=== PATIENT | male | born 1970 | race Caucasian/White ===

== ENCOUNTER 2018-11-23 10:26 | Emergency (ER) | payer SELFPAY ==
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
== END 2018-11-23 11:14 | disposition home or self-care (01) ==
LOC: ERS 10:26
DX: S22.41XA Multiple fractures of ribs, right side, initial encounter for closed fracture (principal); J44.9 Chronic obstructive pulmonary disease, unspecified; F17.210 Nicotine dependence, cigarettes, uncomplicated; W50.1XXA Accidental kick by another person, initial encounter

== ENCOUNTER 2020-01-07 06:17 | Emergency (ER) | payer SELFPAY ==
[2020-01-07] MEDS ORDERED: Ondansetron ODT 8 MG TAB ONE (06:41)
[2020-01-07] MEDS ORDERED: diphenhydrAMINE 25 MG CAP ONE (06:41)
[2020-01-07] MEDS ORDERED: Ketorolac Tromethamine 30 MG/ML VIAL ONE (06:48)
== END 2020-01-07 07:07 | disposition home or self-care (01) ==
LOC: ERS 06:17
DX: F11.23 Opioid dependence with withdrawal (principal); F17.210 Nicotine dependence, cigarettes, uncomplicated; J44.9 Chronic obstructive pulmonary disease, unspecified; F41.9 Anxiety disorder, unspecified; Z71.6 Tobacco abuse counseling
CPT/HCPCS: 96372; 99406; J1885; Q0163

== ENCOUNTER 2020-12-26 15:45 | Emergency (ER) | payer SELFPAY ==
[2020-12-26 22:24] LABS: SARS-CoV-2 PCR by NAA Not Detected (NotDetected)
== END 2020-12-26 16:15 | disposition home or self-care (01) ==
LOC: ERS 15:45
DX: Z20.822 Contact with and (suspected) exposure to COVID-19 (principal); J44.9 Chronic obstructive pulmonary disease, unspecified; F17.210 Nicotine dependence, cigarettes, uncomplicated
CPT/HCPCS: 87635; 99283; U0003; U0005